=== PATIENT | female | born 1960 | race Caucasian/White ===

== ENCOUNTER 2022-08-02 20:16 | Emergency (ER) | payer OTHER, SELFPAY ==
[2022-08-02] VITALS (9 sets, daily range): BP systolic 109–152; BP diastolic 71–115; PULSE 98–123; RESP 11–18; TEMP 37.9; O2SAT 94–98; BMI 30.7
--- NOTE | 2022-08-02 20:30 | ECG_ITS ---
[facility] Test Date: 2022-08-02 Pat Name: LINDA SILVA Department: Room: Gender: Female Acquisition Professional: : [id number] Requested By: Jeremie Acharya Order Number: [id number] Jean MD: Carla Martin M.D. Measurements Intervals [place] Rate: 118 P: 60 CO: 133 QRS: 9 QRSD: 90 T: 68 QT: 323 QTc: 453 Interpretive Statements SINUS TACHYCARDIA LOW QRS VOLTAGE IN PRECORDIAL LEADS [QRS DEFLECTION < 1.0 mV IN CHEST LEADS] ABNORMAL RHYTHM ECG No previous ECG available for comparison Electronically Signed On 08-02-2022 21:10:30 CDT by Carla Martin M.D. [email or web address] In The [id number]
--- NOTE | 2022-08-02 20:35 | W.ED.NEUROSD ---
HPI - Neuro Symptoms/Deficit General: Chief Complaint: Neuro Symptoms/Deficit Stated Complaint: AMS Time Seen by Provider: 08/02/22 20:33 Limitations: altered mental status History of Present Illness: Ms. Manriquez is a 61-year-old lady with apparent history of polio with right-sided chronic deficits presenting to the emergency department for altered mental status. The patient herself provides very limited history and answers I do not know to many questions. Per EMS report she began to decline about 2 days ago with an episode of altered mental status and slurred speech as well as worsening right-sided weakness. She improved but never returned to baseline and then worsened significantly today with possible seizure. No reported seizure history. History is otherwise limited by patient's mental state. Review of Systems General: Reports: ROS unobtainable due to mental status PFS ED PFSH: Medical History (Updated 08/03/22 @ 02:02 by Jeremie Acharya MD) Medical history unknown Surgical History (Updated 08/03/22 @ 01:53 by Jeremie Acharya MD) Surgical history unknown NIH stroke score NIHSS: Level Of Consciousness - 1a: 0 Level Of Consciousness Questions - 1b: Neither Correct Level Of Consciousness Commands - 1c: Both Correct Best Gaze - 2: Normal Visual [place] - 3: No Visual Loss Facial Palsy - 4: Normal Motor Arm Right - 5: Drift Motor Arm Left - 5: No Drift Motor Leg Right - 6: Effort Against [place] Motor Leg Left - 6: No Drift Limb Ataxia - 7: Present In One Limb Sensory - 8: Mild To Moderate Loss Best Language - 9: No Aphasia Dysarthia - 10: Normal Extinction And Inattention - 11: 1 Score: Total Score: 8 Physical Exam Const: COMMON NORMALS: alert GENERAL APPEARANCE: cooperative, well developed and ill appearing HENMT: COMMON NORMALS: normocephalic and atraumatic HEAD & SCALP: normocephalic and atraumatic THROAT: posterior oropharynx normal Eye: COMMON NORMALS: conjunctivae normal CONJUNCTIVA: Yes conjunctivae normal SCLERA: sclerae normal Neck/C-Spine: COMMON NORMALS: supple GENERAL: Yes trachea midline Resp: COMMON NORMALS: clear to auscultation bilaterally EFFORT & INSPECTION: Yes able to speak in complete sentences AUSCULTATION: clear to auscultation bilaterally Cardio: COMMON NORMALS: regular rhythm RATE: tachycardic RHYTHM: regular rhythm GI: COMMON NORMALS: Soft to palpation PALPATION: Yes Soft to palpation and No Tenderness to palpation present (GI) Extremity: GENERAL: Yes normal exam except as noted and No edema Neuro: COMMON NORMALS: moves all extremities SENSORIUM/ORIENTATION: Yes alert and Yes Orientation impaired OTHER: NIHSS 8. Patient does not recall name or date of . She is not oriented. Right upper extremity weakness with drift, right lower extremity effort against gravity. Patient has questionable history of weakness in this leg though unclear. Patient has decreased sensation in the right lower extremity. History somewhat limited by mental status. Psych: MEMORY/COGNITION: Yes memory grossly impaired and Yes cognition grossly intact Course Vital Signs: Vital signs: Vital Signs Temperature 100.3 F H 08/02/22 20:17 Pulse Rate 109 H 08/03/22 02:20 Respiratory Rate 16 08/03/22 02:20 Blood Pressure 125/87 08/03/22 02:20 Pulse Oximetry 96 08/03/22 02:20 Oxygen Delivery Me thod Room Air 08/03/22 02:00 MDM - Neuro Symptoms/Deficit Medical Decision Making 61-year-old lady presenting with reportedly 2 days of mental status change. Patient appears largely encephalopathic, confused with many answers being I do not know . NIHSS is 8. Given duration of symptoms patient is not a candidate for tPA. Initial head CT demonstrates abnormal collection of fluid of indeterminate etiology. EKG demonstrates sinus tachycardia with normal axis and intervals. No STEMI. There are nonspecific ST segment abnormalities. Labs notable for leukocytosis, normal hemoglobin, there is marked thrombocytosis with a platelet count of 933. Labs with mild dehydration, sodium 134, potassium 3.0, chloride 92, anion gap is elevated at 22. Renal function is preserved with normal blood glucose. CRP elevated 165.3. There is no evidence of urinary tract infection, cath sample does have ketones and blood of uncertain etiology. Toxic ingestions and urine drug screen are negative. Viral PCR panel is negative. Chest x-ray with no lobar consolidation or pneumothorax. Given severity of neurologic symptoms with findings of abnormal CT head patient requires MRI for definitive disposition as she may require neurosurgical evaluation which is not available at our facility. MRI demonstrates likely subdural empyema with crescent shaped rim-enhancing subdural fluid collection along the high convexity left posterior frontal lobe measuring 6.8 x 1.8 x 3.5 cm. There are bilateral mastoid effusions and paranasal sinusitis. Vancomycin and Rocephin ordered. Patient has an anaphylactic reaction listed to penicillins. She does endorse a history of penicillin allergy however cannot articulate history of other antibiotic use. Unfortunately we do not have chloramphenicol on formulary at our facility. Plan to watch patient closely and discussed with RN for Rocephin administration. The patient requires emergent neurosurgical evaluation and therefore will be transferred. She was accepted as a ER to ER transfer by Dr. Sampson at [facility] in [place]. Given neurologic deficits already present as well as evidence of sepsis she requires emergent transfer by expeditious means to prevent life-threatening clinically significant deterioration including significant causes of morbidity and mortality. The results of ED evaluation were discussed with the patient as best as possible including plan for transfer due to requirement for level of care not available if discharged to prevent significant worsening/deterioration. Patient agreeable with plan. I did attempt to contact the patient's however there was no answer. Medical Records I reviewed the patient's medical records. Lab Data I reviewed the patient's lab results. 08/02/22 20:02 08/02/22 20:02 Radiology Impressions Chest X-Ray 08/02/22 20:40 IMPRESSION: No acute findings. Head CT 08/02/22 20:40 IMPRESSION: Asymmetric hyperdensity of the cerebral spinal fluid overlying the left frontal lobe of uncertain etiology, consider further evaluation with an MRI. Finding may reflect a chronic extra-axial hemorrhage, however, this is somewhat indeterminate. Finding is best seen series 4, image 38. Head MRI 08/02/22 22:31 IMPRESSION: 1. [place] shaped rim enhancing subdural fluid collection along the high convexity left posterior frontal lobe measuring 6.8 x 1.8 x 3.5 cm most consistent with this subdural empyema. 2. Bilateral mastoid effusions and paranasal sinusitis as discussed above. 3. Mild chronic white matter microvascular changes. ADDENDUM: 08/03/22 0055 THIS REPORT CONTAINS FINDINGS THAT MAY BE CRITICAL TO PATIENT CARE. The findings were verbally communicated via telephone conference with Jeremie Acharya at 12:53 AM CDT on 08/03/2022. The findings were acknowledged and understood. Laboratory Results WBC 14.7 10^3/uL (4.0-10.0) H 08/02/22 20:02 RBC 3.77 10^6/uL (4.1-5.3) L 08/02/22 20:02 Hgb 11.6 g/dL (11.5-15.3) 08/02/22 20:02 Hct 35.8 % (37.0-47.0) L 08/02/22 20:02 MCV 95.0 fl (81-99) 08/02/22 20: MCH 30.8 pg (28.0-34.0) 08/02/22 20: MCHC 32.4 g/dL (30.0-36.0) 08/02/22 20: RDW 12.1 % (12.1-15.1) 08/02/22: Plt Count 933 10^3/cmm (130-400) H 08/02/22 20:02 MPV 9.2 fL (7.4-10.4) 08/02/22 20:02 Neut % (Auto) 64.8 % 08/02/22 20: Lymph % (Auto) 22.7 % 08/02/22 20: [place] % (Auto) 11.5 % 08/02/22 20:02 Eos % (Auto) 0.2 % 08/02/22 20: Baso % (Auto) 0.3 % 08/02/22 20:02 Neut # (Auto) 9.54 10^3/uL (1.8-7.7) H 08/02/22 20:02 Lymph # (Auto) 3.3 10^3/uL (0.8-4.8) 08/02/22 20:02 [place] # (Auto) 1.7 10^3/uL (0.2-0.9) H 08/02/22 20:02 Eos # (Auto) 0.0 10^3/uL (0.0-0.8) 08/02/22 20:02 Baso # (Auto) 0.1 10^3/uL (0.0-0.1) 08/02/22 20:02 Nucleated RBC % (auto) 0 % 08/02/22 20: Nucleated RBCs # 0.0 /100WBC 08/02/22 20: Sodium 134 mmol/L (136-145) L 08/02/22 20:02 Potassium 3.0 mmol/L (3.5-5.1) L 08/02/22 20:02 Chloride 92 mmol/L (98-107) L 08/02/22 20:02 Carbon Dioxide 23 mmol/L (22-29) 08/02/22 20:02 Anion Gap 22.0 (5-19) H 08/02/22 20:02 BUN 13 mg/dL (6-20) 08/02/22 20:02 Creatinine 0.6 mg/dL (0.5-0.9) 08/02/22 20:02 GFR Calculation 102.3 mL/min (90-130) 08/02/22 20:02 Glucose 125 mg/dL (65-115) H 08/02/22 20:02 POC Glucose 138 mg/dL (70-110) H 08/02/22 20:26 Calculated Osmolality 280 mOsm/kg (285-295) L 08/02/22 20:02 Lactic Acid 1.1 mmol/L (0.5-2.2) 08/02/22 21:18 Calcium 9.4 mg/dL (8.5-10.5) 08/02/22 20:02 Total Bilirubin 0.3 mg/dL (0.15-1.2) 08/02/22 20:02 AST 18 U/L (0-32) 08/02/22 20:02 ALT 20 U/L (0-33) 08/02/22 20:02 Alkaline Phosphatase 87 U/L (35-105) 08/02/22 20:02 C-Reactive Protein 165.3 mg/L (0.0-4.9) H 08/02/22 20:02 NT-Pro-B Natriuret Pep 121 pg/mL (0-125) 08/02/22 20:02 Total Protein 7.5 g/dL (6.6-8.7) 08/02/22 20:02 Albumin 3.5 g/dL (3.5-5.2) 08/02/22 20:02 Globulin 4.0 g/dL (1.3-4.6) 08/02/22 20:02 Procalcitonin 0.06 ng/mL (0-0.5) 08/02/22 20:02 TSH 2.10 uIU/mL (0.27-4.20) 08/02/22 20:02 Urine Color Yellow (Yellow) 08/02/22 20:55 Urine Appearance Sl hazy (CLEAR) A 08/02/22 20:55 Urine pH 6 (5-7) 08/02/22 20:55 Ur Specific [place] 1.020 (1.005-1.030) 08/02/22 20:55 Urine Protein Trace (Negative) 08/02/22 20:55 Urine Glucose (UA) Norm (Normal) 08/02/22 20:55 Urine Ketones 2+ (Negative) H 08/02/22 20:55 Urine Blood 2+ (Negative) H 08/02/22 20:55 Urine Nitrate Negative (Negative) 08/02/22 20:55 Urine Bilirubin 1+ (Negative) H 08/02/22 20:55 Urine Urobilinogen 4 mg/dL (Negative) H 08/02/22 20:55 Ur Leukocyte Esterase Negative (Negative) 08/02/22 20:55 Urine RBC 0-4 /hpf (0-2) H 08/02/22 20:55 Urine WBC 0-4 /hpf (0-5) H 08/02/22 20:55 Ur Squamous Epith Cells 0-4 /hpf (0-5) H 08/02/22 20:55 Amorphous Sediment Not Reportable 08/02/22 20:55 Urine Bacteria Trace /hpf (NONE) 08/02/22 20:55 Urine Mucus 3+ /hpf 08/02/22 20:55 Nasal Influ A H1 2009 PCR Not detected (NOT DETECT) 08/02/22 21:40 Salicylates < 0.3 mg/dL (3-10) L 08/02/22 20:02 Urine Opiates Screen Negative ng/mL (Negative) 08/02/22 20:55 Acetaminophen < 5.0 ug/mL (10-30) L 08/02/22 20:02 Ur Barbiturates Screen Negative ng/mL (Negative) 08/02/22 20:55 Ur Phencyclidine Scrn Negative ng/mL (Negative) 08/02/22 20:55 Ur Amphetamines Screen Negative ng/mL (Negative) 08/02/22 20:55 U Benzodiazepines Scrn Negative ng/mL (Negative) 08/02/22 20:55 Urine Cocaine Screen Negative ng/mL (Negative) 08/02/22 20:55 U Marijuana (THC) Screen Negative ng/mL (Negative) 08/02/22 20:55 Ethyl Alcohol < 10 mg/dL (0-10) 08/02/22 20:02 Adenovirus (PCR) Not detected (NOT DETECT) 08/02/22 21:40 C. pneumoniae DNA (PCR) Not detected (NOT DETECT) 08/02/22 21:40 Coronavirus 229E (PCR) Not detected (NOT DETECT) 08/02/22 21:40 Human Metapneumovir PCR Not detected (NOT DETECT) 08/02/22 21:40 Influenza A (H1) PCR Not detected (NOT DETECT) 08/02/22 21:40 Influenza A (H3) PCR Not detected (NOT DETECT) 08/02/22 21:40 Influenza Type A (PCR) Not detected (NOT DETECT) 08/02/22 21:40 Influenza Type B (PCR) Not detected (NOT DETECT) 08/02/22 21:40 M. pneumoniae (PCR) Not detected (NOT DETECT) 08/02/22 21:40 Parainfluenza 1 (PCR) Not detected (NOT DETECT) 08/02/22 21:40 Parainfluenza 2 (PCR) Not detected (NOT DETECT) 08/02/22 21:40 Parainfluenza 3 (PCR) Not detected (NOT DETECT) 08/02/22 21:40 Parainfluenza 4 (PCR) Not detected (NOT DETECT) 08/02/22 21:40 RSV Type A (PCR) Not detected (NOT DETECT) 08/02/22 21:40 RSV Type B (PCR) Not detected (NOT DETECT) 08/02/22 21:40 Entero/Rhino (PCR) Not detected (NOT DETECT) 08/02/22 21:40 SARS-CoV-2 (PCR) Not detected (NOT DETECT) 08/02/22 21:40 Critical Care Time Critical Care Time: Critical Care Time: Yes Total Critical Care Time: 40 Attestation: Due to a high probability of clinically significant, possibly life threatening deterioration, the patient required my highest level of attention and preparedness to intervene emergently and I personally spent this critical care time directly and personally managing the patient. This critical care time included obtaining a history; examining the patient; pulse oximetry; ordering and review of laboratory and imaging studies; arranging urgent treatment with development of a management plan; evaluation of patient's response to treatment; frequent reassessment; and, discussions with other providers as applicable. It was exclusive of separately billable procedures. Primary system involved is neurovascular Discharge Plan Discharge Patient Disposition: Transfer to ED Clinical Impression: Subdural empyema, Acute alteration in mental status, Abnormal neurological exam, Sepsis, Hypokalemia Condition: Stable Coding Level of Care Code ED Energy Consultant for Tyesha Manning
--- NOTE | 2022-08-02 20:40 | XRR_ITS ---
PROCEDURE INFORMATION: Exam: XR Chest Exam date and time: 08/02/2022 8:48 PM Age: 61 years old Clinical indication: Other: AMS TECHNIQUE: Imaging protocol: Radiologic exam of the chest. Views: 1 view. COMPARISON: No relevant prior studies available. FINDINGS: Lungs: Unremarkable. No consolidation. Pleural spaces: Unremarkable. No pleural effusion. No pneumothorax. Heart/Mediastinum: Unremarkable. No cardiomegaly. Bones/joints: Unremarkable. XR/XR chest 1V portable [id number] IMPRESSION: No acute findings.
--- NOTE | 2022-08-02 20:40 | CTR_ITS ---
PROCEDURE INFORMATION: Exam: CT Head Without Contrast Exam date and time: 08/02/2022 9:26 PM Age: 61 years old Clinical indication: Altered mental status/memory loss; Confusion or disorientation; Patient HX: AMS. Lethargy with confusion. Unable to obtain full history. TECHNIQUE: Imaging protocol: Computed tomography of the head without contrast. Radiation optimization: All CT scans at this facility use at least one of these dose optimization techniques: automated exposure control; mA and/or kV adjustment per patient size (includes targeted exams where dose is matched to clinical indication); or iterative reconstruction. REPORTING DATA: Count of CT and Cardiac NM exams in prior 12 months: This patient has received 0 known CTs and 0 known cardiac nuclear medicine studies in the 12 months prior to the current study. COMPARISON: No relevant prior studies available. RADIATION DOSE METRICS: Total DLP (mGy-cm): 999.09 FINDINGS: Brain: Asymmetric hyperdensity of the cerebral spinal fluid overlying the left frontal lobe of uncertain etiology, consider further evaluation with an MRI. Finding may reflect a chronic extra-axial hemorrhage, however, this is somewhat indeterminate. Finding is best seen series 4, image 38. Cerebral ventricles: No ventriculomegaly. Paranasal sinuses: Visualized sinuses are unremarkable. No fluid levels. Mastoid air cells: Visualized mastoid air cells are well aerated. Bones/joints: Negative for acute abnormality. Soft tissues: Unremarkable. CT/CT head wo con* [id number] IMPRESSION: Asymmetric hyperdensity of the cerebral spinal fluid overlying the left frontal lobe of uncertain etiology, consider further evaluation with an MRI. Finding may reflect a chronic extra-axial hemorrhage, however, this is somewhat indeterminate. Finding is best seen series 4, image 38.
[2022-08-02] MEDS: sodium chloride 0.9% 1,000 ML 999 ML IV (20:45)
[2022-08-02 21:05] LABS: Basophils # 0.1 10^3/uL (0.0-0.1); Basophils % 0.3 %; Eosinophils % 0.2 %; Hematocrit 35.8 % (37.0-47.0); Hemoglobin 11.6 g/dL (11.5-15.3); Lymphocytes # 3.3 10^3/uL (0.8-4.8); Lymphocytes % 22.7 %; Mean Corpuscular HGB Conc 32.4 g/dL (30.0-36.0); Mean Corpuscular Hemoglobin 30.8 pg (28.0-34.0); Mean Platelet Volume 9.2 fL (7.4-10.4); Monocytes # 1.7 10^3/uL (0.2-0.9); Monocytes % 11.5 %; Neutrophils # 9.54 10^3/uL (1.8-7.7); Neutrophils % 64.8 %; Nucleated Red Blood Cells % 0 %; Platelet Count 933 10^3/cmm (130-400); Red Blood Count 3.77 10^6/uL (4.1-5.3); Red Cell Distribution Width 12.1 % (12.1-15.1); White Blood Count 14.7 10^3/uL (4.0-10.0)
[2022-08-02 21:15] LABS: Amphetamines Screen Urine Negative (Negative); Barbiturates Screen Urine Negative (Negative); Benzodiazepines Screen Urine Negative (Negative); Cocaine Screen Urine Negative (Negative); Opiate Screen Urine Negative (Negative); PCP Screen Urine Negative (Negative); THC Screen Urine Negative (Negative)
[2022-08-02 21:33] LABS: Blood Urine 2+ (Negative); Glucose Urine UA Norm (Normal); Ketones Urine 2+ (Negative); Leukocyte Esterase Urine Negative (Negative); Nitrate Urine Negative (Negative); Protein Urine Trace (Negative); Urine Appearance SL Hazy (CLEAR); Urine Color Yellow (Yellow); Urobilinogen Urine 4 mg/dL (Negative); pH Urine 6 (5-7)
[2022-08-02 21:34] LABS: Add Urine Microscopic? YES; Bilirubin Urine 1+ (Negative)
[2022-08-02 21:35] LABS: Add Urine Culture? No; Bacteria Urine TRACE /hpf; Mucus Urine 3+ /hpf; RBC Urine 0-4 /hpf (0-2); Squamous Epithelial Cell Urine 0-4 /hpf (0-5); WBC Urine 0-4 /hpf (0-5)
[2022-08-02 21:38] LABS: Lactic Sepsis W/Reflex 1.1 mmol/L (0.5-2.2)
[2022-08-02 21:41] LABS: NT Pro B Type Natriuretic Pept 121 pg/mL (0-125); Procalcitonin 0.06 ng/mL (0-0.5)
[2022-08-02 21:52] LABS: Alanine Aminotransferase 20 U/L (0-33); Albumin Level 3.5 g/dL (3.5-5.2); Alkaline Phosphatase 87 U/L (35-105); Aspartate Amino Transferase 18 U/L (0-32); Blood Urea Nitrogen 13 mg/dL (6-20); C Reactive Protein 165.3 mg/L (0.0-4.9); Calcium 9.4 mg/dL (8.5-10.5); Carbon Dioxide 23 mmol/L (22-29); Chloride 92 mmol/L (98-107); Glomerular Filtration Rate 102.3 mL/min (90-130); Glucose 125 mg/dL (65-115); Osmolality Calculated 280 mOsm/kg (285-295); Sodium 134 mmol/L (136-145); Total Bilirubin 0.3 mg/dL (0.15-1.2); Total Protein 7.5 g/dL (6.6-8.7)
[2022-08-02 21:53] LABS: Acetaminophen < 5.0 ug/mL (10-30); Alcohol Level < 10 mg/dL (0-10); Salicylate < 0.3 mg/dL (3-10)
--- NOTE | 2022-08-02 22:31 | MRR_ITS ---
PROCEDURE INFORMATION: Exam: MR Head Without and With Contrast Exam date and time: 08/02/2022 11:22 PM Age: 61 years old Clinical indication: Abnormal findings; Abnormal radiologic findings of head/skull; Not specified; Altered mental status/memory loss and weakness, extremity; Bilateral; Confusion or disorientation; Additional info: AMS, eval fluid colllection on ct/stroke TECHNIQUE: Imaging protocol: Magnetic resonance imaging of the head without and with contrast. Contrast material: MULTIHANCE; Contrast volume: 20 ml; Contrast route: INTRAVENOUS (IV); COMPARISON: CT head wo con* [id number] 08/02/2022 9:26 PM FINDINGS: Brain: There is a crescent-shaped, rim enhancing subdural fluid collection along the high convexity of the left posterior frontal lobe measuring 6.8 x 1.8 x 3.5 cm best seen in the sagittal and coronal planes that ends at the anterior interhemispheric fissure most consistent with some dural empyema. There is some adjacent accompanying enhancement of adjacent dural membranes and cortical sulci. There are scattered nodular T2 hyperintensities within the periventricular white matter likely secondary to chronic microvascular changes. Cerebral ventricles: Normal. No ventriculomegaly. Bones/joints: Unremarkable. Paranasal sinuses: There is mucosal thickening moderately opacifying the sphenoid sinus and complete opacification the right frontal sinus. Mastoid air cells: Near complete opacification of both mastoid sinuses consistent with mastoid effusions.. Orbital cavities: Unremarkable. Soft tissues: Unremarkable. MR/MR head wo/w con [id number] IMPRESSION: 1. Graff shaped rim enhancing subdural fluid collection along the high convexity left posterior frontal lobe measuring 6.8 x 1.8 x 3.5 cm most consistent with this subdural empyema. 2. Bilateral mastoid effusions and paranasal sinusitis as discussed above. 3. Mild chronic white matter microvascular changes.
[2022-08-02 23:26] LABS: Adenovirus Not Detected (NOT DETECT); Chlamydia Pneumoniae Not Detected (NOT DETECT); Coronavirus 229E,HKU1,NL63,OC4 Not Detected (NOT DETECT); Human Metapneumovirus Not Detected (NOT DETECT); Human Rhinovirus/Enterovirus Not Detected (NOT DETECT); Influenza A Not Detected (NOT DETECT); Influenza A H1 Not Detected (NOT DETECT); Influenza A H1-2009 Not Detected (NOT DETECT); Influenza A H3 Not Detected (NOT DETECT); Influenza B Not Detected (NOT DETECT); Mycoplasma Pneumoniae Not Detected (NOT DETECT); Parainfluenza Virus Type 1 Not Detected (NOT DETECT); Parainfluenza Virus Type 2 Not Detected (NOT DETECT); Parainfluenza Virus Type 3 Not Detected (NOT DETECT); Parainfluenza Virus Type 4 Not Detected (NOT DETECT); Respiratory Syncytial Virus A Not Detected (NOT DETECT); Respiratory Syncytial Virus B Not Detected (NOT DETECT); SARS-COV-2 Not Detected (NOT DETECT)
[2022-08-02] MEDS: gadobenate dimeglumine 20 mL vial IV (23:29)
[2022-08-03 01:30] VITALS: BP 146/94; O2SAT 96
[2022-08-03] MEDS: cefTRIAXone 2,000 MG in sodium chloride 0.9% (plus) 50 ML 100 MG IV (01:33)
[2022-08-03] MEDS: lidocaine 1% 5 ML in potassium chloride premix 100 ML 26.25 ML IV (01:35)
[2022-08-03 01:45] VITALS: BP 134/76; PULSE 60; RESP 12; O2SAT 97
[2022-08-03 02:00] VITALS: BP 125/87; PULSE 93; RESP 18; O2SAT 96
[2022-08-03 02:20] VITALS: BP 125/87; PULSE 109; RESP 16; O2SAT 96
[2022-08-04 09:28] LABS: Glucose Point of Care 138 mg/dL (70-110)
--- NOTE | 2022-08-08 13:11 | DCPLANNER ---
tactical air control party manager called patient due to no primary care physician - no answer at this time.
== END 2022-08-03 02:20 ==
PROVIDERS: Emergency Provider Emergency Medicine
DX: A41.9 Sepsis, unspecified organism (principal); G06.2 Extradural and subdural abscess, unspecified; E87.6 Hypokalemia
CPT/HCPCS: 36415; 36416; 70450; 70553; 71045; 80053; 80306; 80307; 81001; 82962; 83605; 83880; 84145; 84443; 85025; 86140; 87040; 87486; 87581; 87633; 93005; 96365; 96375; 99285; A9577; J0696; J3480; J7030

== ENCOUNTER → 2024-06-25 13:30 | Outpatient (BNVA) | payer OTHER, SELFPAY | PROVIDERS: PCP Family Medicine; Visit Provider Family Medicine | DX: Z13.6 Encounter for screening for cardiovascular disorders (principal) | CPT/HCPCS: 80053; 80061; 85025 ==